=== PATIENT | male | born 1970 | race American Indian/Alaskan Native ===

== ENCOUNTER 2018-10-13 11:32 | Emergency (ER) | payer BC, OTHER ==
[2018-10-13] MEDS ORDERED: BOOSTRIX IM ONE (11:46)
[2018-10-13] MEDS ORDERED: NORCO 7.5/325 PO ONE (11:46)
--- NOTE | 2018-10-13 11:54 | Emergency Department Report ---
ED Head Trauma HPI - General Chief complaint: Head Injury Stated complaint: HEAD INJURY Time Seen by Provider: 10/13/18 11:40 Source: EMS Mode of arrival: Stretcher Limitations: No Limitations - History of Present Illness Initial comments: 48-year-old male presents to the ED following a head injury. Patient states he was at work and a metal rack fell onto the top of his head, left shoulder, and left hand. Patient denies LOC. He reports headache, left shoulder pain. MD Complaint: head injury -: This morning Mechanism of Injury: work related injury Location: other (top of head) Loss of Consciousness: no Place: work Radiation: none Severity: moderate Quality: aching Consistency: constant Provoking factors: none known Other Injuries: other (abrasions to left hand) Context: other (denies anticoagulant use) Associated Symptoms: denies: confusion, vision changes, nausea, vomiting, neck pain - Related Data Previous Rx's Medication Instructions Recorded Last Taken Type Cyclobenzaprine [Flexeril] 10 mg PO TID PRN #14 tablet 05/05/13 Unknown Rx Hydrocodone Bit/Acetaminophen 1 each PO Q6HR PRN #14 tablet 05/05/13 Unknown Rx [Lortab 7.5-500 mg] Ibuprofen [Motrin] 800 mg PO TID PRN #14 tablet 05/05/13 Unknown Rx Prednisone 20 mg PO TID #12 tablet 05/05/13 Unknown Rx Methocarbamol [Robaxin-750] 750 mg PO Q6HR PRN #20 tablet 10/13/18 Unknown Rx Naproxen [Naprosyn] 500 mg PO BID #20 tablet 10/13/18 Unknown Rx traMADol [Ultram] 50 mg PO Q6HR PRN #7 tablet 10/13/18 Unknown Rx Allergies/Adverse reactions: Allergies Allergy/AdvReac Type Severity Reaction Status Date / Time No Known Allergies Allergy Unverified 05/05/13 18:00 ED Review of Systems ROS: Stated complaint: HEAD INJURY Other details as noted in HPI Comment: All other systems reviewed and negative Gastrointestinal: denies: nausea, vomiting Musculoskeletal: as per HPI Neurological: headache ED Past Medical Hx - Past Medical History Previous Medical History?: Yes Additional medical history: ulcerative colitis - Surgical History Past Surgical History?: Yes Additional Surgical History: left knee surgery. neck surgery - Social History Smoking Status: Current Every Day Smoker - Medications Home Medications: Home Medications Medication Instructions Recorded Confirmed Last Taken Type Cyclobenzaprine [Flexeril] 10 mg PO TID PRN #14 tablet 05/05/13 Unknown Rx Hydrocodone Bit/Acetaminophen 1 each PO Q6HR PRN #14 tablet 05/05/13 Unknown Rx [Lortab 7.5-500 mg] Ibuprofen [Motrin] 800 mg PO TID PRN #14 tablet 05/05/13 Unknown Rx Prednisone 20 mg PO TID #12 tablet 05/05/13 Unknown Rx Methocarbamol [Robaxin-750] 750 mg PO Q6HR PRN #20 tablet 10/13/18 Unknown Rx Naproxen [Naprosyn] 500 mg PO BID #20 tablet 10/13/18 Unknown Rx traMADol [Ultram] 50 mg PO Q6HR PRN #7 tablet 10/13/18 Unknown Rx ED Physical Exam - General Limitations: No Limitations General appearance: alert, in no apparent distress - Head Head exam: Present: atraumatic, normocephalic - Eye Eye exam: Present: normal appearance - ENT ENT exam: Present: mucous membranes moist - Neck Neck exam: Present: normal inspection. Absent: tenderness - Respiratory Respiratory exam: Present: normal lung sounds bilaterally. Absent: respiratory distress - Cardiovascular Cardiovascular Exam: Present: regular rate, normal rhythm - GI/Abdominal GI/Abdominal exam: Present: soft. Absent: distended, tenderness - Extremities Exam Extremities exam: Present: other (tenderness to left shoulder w/ decreased ROM secondary to pain; abrasions to left hand, no swelling present, ROM normal) - Neurological Exam Neurological exam: Present: alert, oriented X3, CN II-XII intact. Absent: motor sensory deficit - Psychiatric Psychiatric exam: Present: normal affect, normal mood - Skin Skin exam: Present: warm, dry, normal color ED Course Vital Signs 10/13/18 10/13/18 10/13/18 11:42 11:43 13:09 Temperature 97.5 F L 97.5 F L 98.5 F Pulse Rate 80 Respiratory 17 17 16 Rate Blood Pressure 130/87 Blood Pressure 130/87 140/84 [Left] O2 Sat by Pulse 100 Oximetry - Radiology Data Radiology results: report reviewed, image reviewed - Medical Decision Making 48-year-old male with head injury, left shoulder injury while at work. CT head negative. Patient remains A&O 3, GCS 15. No neuro deficits. Shoulder films normal. Patient feeling much better at this time. Will discharge home. Return precautions given, outpatient follow-up advised. - Differential Diagnosis intracranial injury, fracture, sprain - NEXUS Criteria Focal neurological deficit present: No Midline spinal tenderness present: No Altered level of consciousness: No Intoxication present: No Distracting injury present: No NEXUS results: C-Spine can be cleared clinically by these results. Imaging is not required. Critical care attestation.: If time is entered above; I have spent that time in minutes in the direct care of this critically ill patient, excluding procedure time. ED Disposition Clinical Impression: Head injury, Contusion of left shoulder, Contusion of left hand, Abrasion of left hand Disposition: - TO HOME OR SELFCARE Is pt being admited?: No Condition: Stable Instructions: Concussion (ED), Minor Head Injury (ED), Shoulder Sprain (ED) Prescriptions: Naproxen [Naprosyn] 500 mg PO BID #20 tablet Methocarbamol [Robaxin-750] 750 mg PO Q6HR PRN #20 tablet PRN Reason: Spasms traMADol [Ultram] 50 mg PO Q6HR PRN #7 tablet PRN Reason: Pain Referrals: INES SALINASWILMAR MD YUMIKO [Referring] - 3-5 Days LISANDRO MERRILL MD [Staff Physician] - 3-5 Days Forms: Work/School Release Form(ED) Time of Disposition: 12:52
--- NOTE | 2018-10-13 12:23 | XRay Report ---
LEFT SHOULDER: History: Injury. Routine views demonstrate normal bony and soft tissue structures with normal joint alignment of the shoulder. IMPRESSION: Normal study.
--- NOTE | 2018-10-13 12:24 | Cat Scan Report ---
CT HEAD WITHOUT CONTRAST: HISTORY: Injury. TECHNIQUE: Sequential 2.5mm CT images. COMPARISON: none. FINDINGS: Cerebral Parenchyma: Within normal limits. Cerebellum: Within normal limits. Brainstem: Within normal limits. Ventricles: Normal. Sella: Normal. Extra-axial spaces: Normal. Basal Cisterns: Normal. Intracranial Hemorrhage: None. Midline Shift: None. Calvarium: Normal. Sinuses: Normal. Mastoid Air Cells: Normal. Visualized Orbits: Normal. IMPRESSION: Cranial CT scan within normal limits.
[2018-10-13 13:10] VITALS: BP 140/84
== END 2018-10-13 13:10 | disposition home or self-care (01) ==
LOC: ED 11:32
DX: S09.90XA Unspecified injury of head, initial encounter (principal); S40.012A Contusion of left shoulder, initial encounter; S60.222A Contusion of left hand, initial encounter; F17.200 Nicotine dependence, unspecified, uncomplicated; Z79.899 Other long term (current) drug therapy; W20.8XXA Other cause of strike by thrown, projected or falling object, initial encounter; Y93.89 Activity, other specified; Y92.69 Other specified industrial and construction area as the place of occurrence of the external cause; Y99.0 Civilian activity done for income or pay
CPT/HCPCS: 70450; 90471; 90715

== ENCOUNTER 2020-07-19 23:27 | Emergency (ER) | payer SELFPAY ==
[2020-07-20 02:19] VITALS: BP 147/96
== END 2020-07-20 02:55 | disposition left against medical advice (07) ==
LOC: ED 23:27
DX: L23.7 Allergic contact dermatitis due to plants, except food (principal); Z53.21 Procedure and treatment not carried out due to patient leaving prior to being seen by health care provider